=== PATIENT | male | born 1955 | race Caucasian/White ===

== ENCOUNTER 2016-09-28 13:05 | Outpatient (RCR) | payer BC | END 2016-11-06 08:44 | disposition home or self-care (01) | LOC: PT 13:05 | DX: M25.561 Pain in right knee (principal) ==

== ENCOUNTER 2016-12-14 10:30 | Outpatient (RCR) | payer BC | END 2016-12-15 12:03 | disposition home or self-care (01) | LOC: PT 10:30 | DX: Z47.89 Encounter for other orthopedic aftercare (principal) ==